=== PATIENT | male | born 1945 | race Caucasian/White ===

== ENCOUNTER 2017-11-13 13:12 | Inpatient (IN) | payer OTHER, BC ==
[~2017-11-13] VITALS: Ht 177.8 cm; Wt 97.8 kg
[2017-11-13 13:22] VITALS: Ht 177.8 cm; Wt 97.8 kg
[2017-11-13 13:54] LABS: PLATELET COUNT 147 x10^3mcL (130-400)
[2017-11-13 14:06] LABS: CALCIUM 8.9 mg/dL (8.5-10.1); CARBON DIOXIDE 27.5 mmol/L (21-32); CHLORIDE SERUM 101 mmol/L (98-107); CREATININE SERUM 1.5 mg/dL (0.6-1.0); GLUCOSE SERUM 326 mg/dL (74-106); POTASSIUM SERUM 4.1 mmol/L (3.5-5.1); SODIUM SERUM 139 mmol/L (136-145)
[2017-11-13 14:10] LABS: ALBUMIN 3.7 g/dL (3.4-5.0); ALKALINE PHOSPHATASE 103 U/L (46-116); ALT/SGPT 36 U/L (14-59); AST/SGOT 21 U/L (15-37); BILIRUBIN TOTAL 0.7 mg/dL (0.20-1.00); TOTAL PROTEIN, SERUM 7.2 g/dL (6.4-8.2)
[2017-11-13 14:58] LABS: BAND NEUTROPHIL 5 % (0-10); MONOCYTE 2 % (0-7); SEGMENTED NEUTROPHILS 84 % (37-75)
[2017-11-13 14:59] LABS: BASOPHIL 0 % (0-2); PLATELET MORPHOLOGY LARGE PLATELET SEEN; rbc morphology (normal/abnorm) ABNORMAL (NORMAL)
[2017-11-13] MEDS ORDERED: METFORMIN HYD1000 M2 PO (16:07)
[2017-11-13] MEDS ORDERED: DIOVAN HCT1 TA1 PO (16:08)
[2017-11-13] MEDS ORDERED: FUROSEMIDE40 MG PO (16:08)
[2017-11-13] MEDS ORDERED: NEXIUM40 MG PO (16:08)
[2017-11-13] MEDS ORDERED: SIMVASTATIN40 M1 PO (16:08)
[2017-11-13] MEDS ORDERED: HUMALOG100 U/ML SC (16:09)
[2017-11-13] MEDS ORDERED: LEVEMIR100 U/M1 SC (16:09)
[2017-11-13] MEDS ORDERED: BETHANECHOL CHL25 MG PO (16:10)
[2017-11-13] MEDS ORDERED: FLOMAX0.4 MG PO (16:10)
[2017-11-13] MEDS ORDERED: ACTOS15 M1 PO (16:10)
[2017-11-13] MEDS ORDERED: ASPIR 8181 MG PO (16:11)
[2017-11-13 17:33] LABS: microscopic required? NO
[2017-11-13 17:44] LABS: MAGNESIUM 1.6 mg/dL (1.8-2.4)
[2017-11-13 17:45] LABS: urine erythrocyte NEGATIVE (NEGATIVE)
[2017-11-13 17:54] LABS: AMPHETAMINE QUAL UR NONE DETECTED (NEG <=1000)
[2017-11-13 17:55] VITALS: BP 129/72
[2017-11-13 17:55] LABS: FREE T4 0.98 ng/dL (0.76-1.46); FREE THYROXINE INDEX 2.4 ug/dL (1.4-4.5); T3 TOTAL 0.79 ng/mL
[2017-11-13 18:15] VITALS: BP 118/72
[2017-11-13 19:20] VITALS: BP 112/57
[2017-11-13] MEDS ORDERED: HYDROCHLOROTH12.5 M2 PO (20:26)
[2017-11-14] MEDS ORDERED: CENTRUM SILVER1 EACH PO (05:07)
[2017-11-14] MEDS ORDERED: CAVERJECT40 MCG IV (05:29)
[2017-11-14] MEDS ORDERED: FLO4 PO (05:43)
[2017-11-14 06:04] VITALS: BP 105/53
[2017-11-14 06:44] LABS: PLATELET COUNT 137 x10^3mcL (130-400); RED CELL DISTRIBUTION WIDTH 14.2 % (11.5-14.5)
[2017-11-14 06:51] LABS: BASOPHIL % 0 % (0-2)
[2017-11-14 06:59] LABS: CALCIUM 8.1 mg/dL (8.5-10.1); CARBON DIOXIDE 26.5 mmol/L (21-32); CHLORIDE SERUM 104 mmol/L (98-107); CREATININE SERUM 1.2 mg/dL (0.7-1.3); GLUCOSE SERUM 224 mg/dL (74-106); HDL CHOLESTEROL 42 mg/dL (40-60); MAGNESIUM 1.8 mg/dL (1.8-2.4); SODIUM SERUM 137 mmol/L (136-145); TRIGLYCERIDES 56 mg/dL (<150)
[2017-11-14 07:05] LABS: CHOLESTEROL 121 mg/dL (<200); CHOLESTEROL/HDL RATIO 2.9
[2017-11-14 09:57] VITALS: BP 147/79
[2017-11-14 14:08] VITALS: BP 93/46
[2017-11-14 17:25] VITALS: BP 124/50
[2017-11-14 18:10] LABS: CALCIUM 8.5 mg/dL (8.5-10.1); CARBON DIOXIDE 28.6 mmol/L (21-32); CHLORIDE SERUM 100 mmol/L (98-107); CREATININE SERUM 1.3 mg/dL (0.7-1.3); GLUCOSE SERUM 185 mg/dL (74-106); POTASSIUM SERUM 3.6 mmol/L (3.5-5.1); SODIUM SERUM 135 mmol/L (136-145)
[2017-11-14 18:26] LABS: BASOPHIL % 0 % (0-2); PLATELET COUNT 129 x10^3mcL (130-400)
[2017-11-14 20:09] LABS: UA SPECIFIC GRAVITY 1.025 (1.005-1.035); microscopic required? YES; urine erythrocyte 2+ (NEGATIVE)
[2017-11-14 21:03] VITALS: BP 113/59
[2017-11-14 21:36] VITALS: BP 126/58
[2017-11-15 05:43] VITALS: BP 116/64
[2017-11-15 06:47] LABS: CARBON DIOXIDE 28.8 mmol/L (21-32); CHLORIDE SERUM 101 mmol/L (98-107); CREATININE SERUM 1.3 mg/dL (0.7-1.3); GLUCOSE SERUM 131 mg/dL (74-106); MAGNESIUM 1.9 mg/dL (1.8-2.4); PHOSPHOROUS 2.4 mg/dL (2.5-4.9); POTASSIUM SERUM 4.4 mmol/L (3.5-5.1); SODIUM SERUM 135 mmol/L (136-145)
[2017-11-15 06:55] LABS: BASOPHIL % 0.2 % (0-2); RED CELL DISTRIBUTION WIDTH 14.2 % (11.5-14.5)
[2017-11-15 06:56] LABS: PLATELET COUNT 104 x10^3mcL (130-400)
[2017-11-15 09:49] VITALS: BP 123/60
[2017-11-15 13:02] VITALS: BP 127/61
[2017-11-15 16:09] VITALS: BP 124/62
[2017-11-15 21:13] VITALS: BP 126/64
[2017-11-16 05:58] VITALS: BP 124/69
[2017-11-16 06:41] LABS: CALCIUM 8.2 mg/dL (8.5-10.1); CARBON DIOXIDE 26.9 mmol/L (21-32); CHLORIDE SERUM 105 mmol/L (98-107); CREATININE SERUM 1.1 mg/dL (0.7-1.3); GLUCOSE SERUM 118 mg/dL (74-106); MAGNESIUM 2.1 mg/dL (1.8-2.4); PHOSPHOROUS 2.5 mg/dL (2.5-4.9); POTASSIUM SERUM 3.7 mmol/L (3.5-5.1); SODIUM SERUM 139 mmol/L (136-145)
[2017-11-16 08:35] LABS: BASOPHIL % 0.2 % (0-2); PLATELET COUNT 126 x10^3mcL (130-400); RED CELL DISTRIBUTION WIDTH 13.7 % (11.5-14.5)
[2017-11-16 09:12] VITALS: BP 124/69
[2017-11-16 09:15] VITALS: BP 137/69
[2017-11-16] MEDS ORDERED: LEVAQUIN500 M1 PO (09:20)
[2017-11-16] MEDS ORDERED: LAC PO (09:21)
[2017-11-16 09:31] VITALS: BP 137/69
== END 2017-11-16 14:28 | disposition home or self-care (01) | DRG 682 ==
LOC: ED 13:12 → DU 16:59
PROVIDERS: Emergency Medicine; Internal Medicine Interventional Cardiology; Student in an Organized Health Care Education/Training Program
DX: N17.0 Acute kidney failure with tubular necrosis (principal); G93.41 Metabolic encephalopathy; N39.0 Urinary tract infection, site not specified; J98.11 Atelectasis; E87.1 Hypo-osmolality and hyponatremia; G90.8 Other disorders of autonomic nervous system; R00.0 Tachycardia, unspecified; E86.0 Dehydration; E11.65 Type 2 diabetes mellitus with hyperglycemia; N40.0 Benign prostatic hyperplasia without lower urinary tract symptoms; D64.9 Anemia, unspecified; E83.42 Hypomagnesemia; G47.33 Obstructive sleep apnea (adult) (pediatric); T67.5XXA Heat exhaustion, unspecified, initial encounter; E83.51 Hypocalcemia; X58.XXXA Exposure to other specified factors, initial encounter; Z53.29 Procedure and treatment not carried out because of patient's decision for other reasons; Z79.82 Long term (current) use of aspirin; Z79.899 Other long term (current) drug therapy; Y93.89 Activity, other specified; Y92.89 Other specified places as the place of occurrence of the external cause; Y99.8 Other external cause status; E66.9 Obesity, unspecified; Z68.25 Body mass index [BMI] 25.0-25.9, adult; N52.9 Male erectile dysfunction, unspecified; J84.10 Pulmonary fibrosis, unspecified; I08.1 Rheumatic disorders of both mitral and tricuspid valves
CPT/HCPCS: 36600; 82962; 83880; 84439; 85378; J1815; J1885; J1956; J2405; J3490; J7030; J8597; Q0092; Q9967